=== PATIENT | male | born 1990 | race Two or more races ===

== ENCOUNTER 2019-04-14 18:09 | Emergency (ER) | payer OTHER ==
[~2019-04-14] VITALS: Ht 180.3 cm; Wt 88.0 kg
[2019-04-14 18:09] VITALS: BP 116/73
== END 2019-04-14 18:49 | disposition home or self-care (01) ==
LOC: ER 18:13
DX: S61.031A Puncture wound without foreign body of right thumb without damage to nail, initial encounter (principal); Z98.890 Other specified postprocedural states; W22.8XXA Striking against or struck by other objects, initial encounter; Y93.G3 Activity, cooking and baking; Y92.89 Other specified places as the place of occurrence of the external cause; Y99.8 Other external cause status